=== PATIENT | female | born 1980 | race Caucasian/White ===

== ENCOUNTER 2017-01-29 16:31 | Emergency (ER) | payer OTHER | END 2017-01-29 18:05 | disposition home or self-care (01) | LOC: ER 16:31 | DX: L23.5 Allergic contact dermatitis due to other chemical products (principal); R00.0 Tachycardia, unspecified; F11.21 Opioid dependence, in remission; F17.210 Nicotine dependence, cigarettes, uncomplicated; Z79.899 Other long term (current) drug therapy | CPT/HCPCS: 93005; 96372; 96374; 99282-25; J2930; J8597 ==

== ENCOUNTER 2017-02-02 05:10 | Emergency (ER) | payer OTHER | END 2017-02-02 06:05 | disposition home or self-care (01) | LOC: ER 05:10 | DX: L50.1 Idiopathic urticaria (principal); Z98.890 Other specified postprocedural states; F17.210 Nicotine dependence, cigarettes, uncomplicated; Z79.899 Other long term (current) drug therapy | CPT/HCPCS: 96372; 99282-25; J2930 ==